=== PATIENT | female | born 1980 ===

== ENCOUNTER 2017-05-31 08:44 | Emergency (ER) | payer OTHER ==
--- NOTE | 2017-05-31 10:20 | ED PDOC ---
HPI: Abdomen Time Seen by Provider: 05/31/17 09:07 Chief Complaint (Nursing): Abdominal Pain Chief Complaint (Provider): abdominal pain History Per: Patient History/Exam Limitations: no limitations Onset/Duration Of Symptoms: Days Additional Complaint(s): 36 year old female, currently 11 weeks , presents to the emergency department with a complaint of right-sided pelvic pain associated with vaginal bleeding ongoing intermittently for 2 days. She denied any fever, chills, back pain, blood clots, syncope, chest pain or urinary complaints. Patient reported that a normal ultrasound with negative findings was performed 2 weeks ago. PMD: none provided Past Medical History Reviewed: Historical Data, Nursing Documentation, Vital Signs Vital Signs: Last Vital Signs Temp 98.4 F 05/31/17 13:41 Pulse 79 05/31/17 13:41 Resp 19 05/31/17 13:41 BP 107/71 05/31/17 13:41 Pulse Ox 99 05/31/17 13:41 - Medical History PMH: No Chronic Diseases - Surgical History Surgical History: Denies: No Surg Hx Other surgeries: rhinoplasty; breast augmentation - Family History Family History: States: Unknown Family Hx - Social History Current smoker - smoking cessation education provided: No Ex-Smoker (has not smoked in the last 12 months): No Alcohol: None Drugs: Denies - Allergies Allergies/Adverse Reactions: Allergies Allergy/AdvReac Type Severity Reaction Status Date / Time No Known Allergies Allergy Verified 05/31/17 08:52 Review of Systems ROS Statement: Except As Marked, All Systems Reviewed And Found Negative Constitutional: Negative for: Fever, Chills Cardiovascular: Negative for: Chest Pain Genitourinary Female: Positive for: Vaginal Bleeding (without clots), Pelvic Pain (right sided). Negative for: Dysuria, Incontinence, Hematuria Musculoskeletal: Negative for: Back Pain Neurological: Negative for: Dizziness Physical Exam - Reviewed Nursing Documentation Reviewed: Yes Vital Signs Reviewed: Yes - Physical Exam Appears: Positive for: Well, Non-toxic, No Acute Distress Head Exam: Positive for: ATRAUMATIC, NORMAL INSPECTION, NORMOCEPHALIC Skin: Positive for: Normal Color Eye Exam: Positive for: Normal appearance ENT: Positive for: Normal ENT Inspection Neck: Positive for: Normal Cardiovascular/Chest: Positive for: Regular Rate, Rhythm, Chest Non Tender Respiratory: Positive for: Normal Breath Sounds. Negative for: Decreased Breath Sounds, Wheezing, Respiratory Distress Gastrointestinal/Abdominal: Positive for: Soft, Tenderness (suprapubic). Negative for: Distended Back: Positive for: Normal Inspection. Negative for: L CVA Tenderness, R CVA Tenderness Extremity: Positive for: Normal ROM (upper/lower) Neurologic/Psych: Positive for: Alert (x3), Oriented - Laboratory Results Result Diagrams: 05/31/17 10:15 05/31/17 10:15 - ECG O2 Sat by Pulse Oximetry: 98 (RA) Pulse Ox Interpretation: Normal - Progress Re-evaluation Time: 12:25 Condition: Re-examined, Improved Medical Decision Making Medical Decision Making: Initial Impression: Vaginal bleeding in , first trimester Differential Diagnosis: Threatened miscarriage; demise; Ovarian torsion Initial Plan: * Type and screen * BMP * Urine * Urine dipstick * CBC * US OB Time: 1218 --US OB FINDINGS: Cardiac activity: Present Rate: 165 BPM Measurements: [place] rump length: 4.05 cm Gestational age based on CRL 11 weeks Gestational age 11 weeks 3 days based on gestational sac measurement 5.49 cm Gestational age derived from LMP: 11 weeks 2 days LIBIA based on LMP: 12/20/2017 LIBIA based on biometry: 12/18/2017 Gestational concordance documented Yolk sac identified Uterus: Unremarkable. Cervix: No Cervical abnormalities: Negative examination for cervical dilatation or effacement. Closed cervix measuring 4.99 cm Subchorionic hemorrhage: None UTERUS: 7.1 x 9.4 x 14.4 cm. Anterior fibroid to the right of the midline 3.6 x 2.5 x 2.7 cm. Anterior fibroid to midpole uterine segment midline 1.2 x 1.4 x 2.1 cm ADNEXA: Right: 2.1 x 3.1 x 2.8 cm. Simple cyst 1.5 x 1.3 cm Normal Doppler arterial waveform documented. Left: 1.5 x 1.9 x 2.1 cm. Normal Doppler arterial waveform documented Fluid in the cul-de-sac: None IMPRESSION: Eleven weeks 2 days intrauterine gestation. Gestational concordance documented. Two small uterine fibroids. Scribe Attestation: Documented by Ana Alston, acting as a scribe for Hitesh Stubbs MD. Provider Scribe Attestation: All medical record entries made by the Scribe were at my direction and personally dictated by me. I have reviewed the chart and agree that the record accurately reflects my personal performance of the history, physical exam, medical decision making, and the department course for this patient. I have also personally directed, reviewed, and agree with the discharge instructions and disposition. Disposition - Clinical Impression Clinical Impression: Abdominal pain during , Vaginal abnormality in , Vaginal bleeding - Patient ED Disposition Is Patient to be Admitted: No Doctor Will See Patient In The: Office Counseled Patient/Family Regarding: Studies Performed, Diagnosis, Need For Followup - Disposition Referrals: [facility] [Outside] Disposition: Routine/Home Disposition Time: 12:30 Condition: GOOD Additional Instructions: Take your vitamins. Follow up with your PCP in 2-3 days. Instructions: Threatened Miscarriage, Bleeding With (DC) Print Language: MEXICAN
[2017-05-31 11:07] LABS: HEMOGLOBIN 12.7 g/dL (12.0-16.0); LYMPH % 15.9 % (20.0-40.0); MEAN CORPUSCULAR HEMOGLOBIN 31.2 pg (27.0-31.0); MEAN PLATELET VOLUME 8.9 fl (7.2-11.7); MONO % 5.8 % (0.0-10.0); NEUT % 77.5 % (50.0-75.0); RBC 4.08 Mil/uL (3.80-5.20); RED CELL DISTRIBUTION WIDTH 13.4 % (11.5-14.5)
[2017-05-31 11:08] LABS: BASO % 0.2 % (0.0-2.0); EOS % 0.6 % (0.0-4.0); LYMPH # 1.3 K/uL (1.0-4.3); MONO # 0.5 K/uL (0.0-0.8); NEUT # 6.2 K/uL (1.8-7.0); NRBC % 0.1 % (0.0-0.0)
[2017-05-31 11:18] LABS: BLOOD UREA NITROGEN 12 mg/dl (7-17); CALCIUM 9.8 mg/dL (8.4-10.2); GFR AFRICAN-AMERICAN > 60; GFR NON-AFRICAN AMERICAN > 60
--- NOTE | 2017-05-31 12:19 | US ---
PROCEDURE: First trimester ultrasound HISTORY: Pelvic pain, vaginal bleeding. COMPARISON: None available. TECHNIQUE: Standard protocol for this study/examination. FINDINGS: LMP: 03/15/2017 Prior examinations from the current : None TECHNIQUE: Real-time 2D imaging, duplex and color Doppler. FINDINGS: Cardiac activity: Present Rate: 165 BPM Measurements: [place] rump length: 4.05 cm Gestational age based on CRL 11 weeks Gestational age 11 weeks 3 days based on gestational sac measurement 5.49 cm Gestational age derived from LMP: 11 weeks 2 days LIBIA based on LMP: 12/20/2017 LIBIA based on biometry: 12/18/2017 Gestational concordance documented Yolk sac identified Uterus: Unremarkable. Cervix: No Cervical abnormalities: Negative examination for cervical dilatation or effacement. Closed cervix measuring 4.99 cm Subchorionic hemorrhage: None UTERUS: 7.1 x 9.4 x 14.4 cm. Anterior fibroid to the right of the midline 3.6 x 2.5 x 2.7 cm. Anterior fibroid to midpole uterine segment midline 1.2 x 1.4 x 2.1 cm ADNEXA: Right: 2.1 x 3.1 x 2.8 cm. Simple cyst 1.5 x 1.3 cm Normal Doppler arterial waveform documented. Left: 1.5 x 1.9 x 2.1 cm. Normal Doppler arterial waveform documented Fluid in the cul-de-sac: None IMPRESSION: Eleven weeks 2 days intrauterine gestation. Gestational concordance documented. Two small uterine fibroids.
[2017-05-31 13:43] VITALS: BP 107/71; PULSE 79; RESP 19; TEMP 98.4
[2017-06-02 14:53] VITALS: O2SAT 98
== END 2017-05-31 14:01 | disposition home or self-care (01) ==
LOC: H.ER 08:44
DX: O46.90 Antepartum hemorrhage, unspecified, unspecified trimester (principal); D25.9 Leiomyoma of uterus, unspecified

== ENCOUNTER 2017-12-15 23:25 | Inpatient (IN) | payer OTHER ==
[2017-12-16 00:11] VITALS: BMI 29.2
[2017-12-16] MEDS ORDERED: Lactated Ringer's 1,000 ML IV SCH ×4 (00:45→18:15)
[2017-12-16 01:46] LABS: HEMOGLOBIN 11.4 g/dL (12.0-16.0); MEAN CELL VOLUME 85.7 fl (81.0-99.0); MEAN CORPUSCULAR HEMOGLOBIN 28.3 pg (27.0-31.0); RBC 4.03 Mil/uL (3.80-5.20); RED CELL DISTRIBUTION WIDTH 13.9 % (11.5-14.5)
[2017-12-16] MEDS ORDERED: Oxytocin 30 UNIT 30 UNITS/500 ML BAG IV ONE ×2 (07:57→14:25)
[2017-12-16] MEDS ORDERED: OXYTOCIN/0.9 % NS 20 UNIT/1,000 ML BAG IV SCH (08:00)
[2017-12-16 08:50] LABS: BASO # 0.1 K/uL (0.0-0.2); EOS # 0.1 K/uL (0.0-0.7); EOS % 0.6 % (0.0-4.0); HEMOGLOBIN 11.5 g/dL (12.0-16.0); LYMPH # 1.2 K/uL (1.0-4.3); LYMPH % 12.4 % (20.0-40.0); MEAN CELL VOLUME 85.4 fl (81.0-99.0); MEAN CORPUSCULAR HEMOGLOBIN 28.6 pg (27.0-31.0); MEAN CORPUSCULAR HGB CONC 33.5 g/dL (33.0-37.0); MEAN PLATELET VOLUME 8.7 fl (7.2-11.7); MONO # 0.5 K/uL (0.0-0.8); MONO % 5.5 % (0.0-10.0); NEUT # 7.6 K/uL (1.8-7.0); NEUT % 80.5 % (50.0-75.0); NRBC % 0.1 % (0.0-0.0); RBC 4.01 Mil/uL (3.80-5.20); WHITE BLOOD COUNT 9.5 K/uL (4.8-10.8)
--- NOTE | 2017-12-16 14:24 | OBPN ---
Datetime: 12/16/2017 14:18 IP Progress Impression Other: category 1 heart tracing IP Procedures: Sterile Vag Exam IP Progress Plan: Augmentation Contraction Comments Provider: Occasional FHR - Baseline A Provider: 120s-130s IP Progress Note Comment: Patient without complaints at this time. Discussed plan with patient and all patient questions answered. Plan to start Pitocin augmentation. Category 1 heart tracing. Vital Signs Provider: Reviewed; Within Normal Limits NICHD Accel Fetus A IP Provider: [id number] FHR Category Provider Fetus A: Category I NICHD Variability Prov Fetus A: Moderate 6-25bpm Dilatation, Provider: 3 Effacement, Provider: 50 Station, Provider: -2 NICHD Decel Fetus A IP Provider: None Datetime: 12/16/2017 00:45 IP Progress Impression: Reassuring heart rate
[2017-12-16] MEDS ORDERED: Fentanyl/Bupivacaine HCl 250 ML EPI ONE (16:43)
[2017-12-16] MEDS ORDERED: Lidocaine 1% Inj (20ml) ONE (22:41)
--- NOTE | 2017-12-17 00:38 | OBPN ---
Datetime: 12/17/2017 00:35 IP Progress Impression Other: Category I FHT IP Procedures: Sterile Vag Exam IP Progress Plan: Continue present management; Augmentation FHR - Baseline A Provider: 130s-140s IP Progress Note Comment: Pt beginning to push. FHT category I. Discussed plan with patient and al l patient questions answered. Vital Signs Provider: Reviewed; Within Normal Limits NICHD Accel Fetus A IP Provider: [id number] FHR Category Provider Fetus A: Category I NICHD Variability Prov Fetus A: Moderate 6-25bpm Dilatation, Provider: 10 Effacement, Provider: 100 Station, Provider: 2 NICHD Decel Fetus A IP Provider: None Datetime: 12/16/2017 19:18 IP Progress Impression: Normal progression of labor
[2017-12-17] MEDS ORDERED: Benzocaine/Menthol SPRAY TOP PRN ×2 (03:49→05:36)
[2017-12-17] MEDS ORDERED: Fentanyl/Bupivacaine HCl 250 ML EPI ONE (05:36)
[2017-12-17] MEDS ORDERED: Lactated Ringer's 1,000 ML IV SCH ×4 (05:36)
[2017-12-17] MEDS ORDERED: OXYTOCIN/0.9 % NS 20 UNIT/1,000 ML BAG IV SCH (05:36)
[2017-12-17 16:56] LABS: HEMOGLOBIN 10.2 g/dL (12.0-16.0); MEAN CELL VOLUME 87.2 fl (81.0-99.0); MEAN CORPUSCULAR HEMOGLOBIN 28.4 pg (27.0-31.0); MEAN CORPUSCULAR HGB CONC 32.5 g/dL (33.0-37.0); RBC 3.58 Mil/uL (3.80-5.20); RED CELL DISTRIBUTION WIDTH 14.4 % (11.5-14.5); WHITE BLOOD COUNT 13.3 K/uL (4.8-10.8)
--- NOTE | 2017-12-18 19:17 | OBPPN ---
Datetime: 12/18/2017 11:30 PP Pain Prov: Within normal limits PP Nausea Prov: Denies PP Flatus Prov: Yes PP Breasts Prov: Normal PP Heart Prov: Normal PP Lungs Prov: Normal PP Abdomen/Uterus Prov: Normal PP Lochia Prov: Normal PP Vulva/Perineum Prov: Normal PP CVA Tenderness Prov: Normal PP Extremities Prov: Normal PP Comments Phys Exam Prov: ABD: Soft, NT, BS present UT- Firm PP Impression Prov: Normal progression PP Plan Prov: Continue present management PP Progress Note Prov: S/P , Clinically Stable Clinically Stable. Plan: Continue care. Vital Signs Provider PP: Reviewed
--- NOTE | 2017-12-19 10:28 | OBPPN ---
Datetime: 12/19/2017 10:24 PP Pain Prov: Within normal limits PP Nausea Prov: Denies PP Flatus Prov: Yes PP Breasts Prov: Normal PP Heart Prov: Normal PP Lungs Prov: Normal PP Abdomen/Uterus Prov: Normal PP Lochia Prov: Normal PP Vulva/Perineum Prov: Normal PP CVA Tenderness Prov: Normal PP Extremities Prov: Normal PP Progress Prov: Normal PP Comments Phys Exam Prov: ABD: Soft, NT, BS- present UT- Firm PP Impression Prov: Normal progression PP Plan Prov: Discharge PP Progress Note Prov: S/P , PPD#2 Clinically Stable Plan: D/C Home. Vital Signs Provider PP: Reviewed
--- NOTE | 2017-12-19 10:30 | OBDCSUM ---
Datetime: 12/19/2017 10:26 Discharged to, Provider: Home Follow up at, Provider: OB Doctor Disch Instr Activity: Normal activity Disch Instr Diet: Regular Discharge Instructions, Provider: Routine instructions given Discharge Diagnosis, Provider: Term Delivered Discharge Time: 12/19/2017 10:26 Follow up in weeks, Provider: 4-6 weeks Disch Referrals: None Contraception discussed, Prov: Yes Discharge Comment, Provider: s/p Uncomplicated , Clinically Stable Discharge Diagnosis Prov Other: s/p Uncomplicated , Clinically Stable
[2017-12-19 23:39] VITALS: BP 127/75; PULSE 109; RESP 18; TEMP 97.9; O2SAT 98
== END 2017-12-19 13:30 | disposition home or self-care (01) | DRG 807 ==
LOC: H.EROB2 23:25 → H.L&D 12-16 05:48 → OBSVTOIN 12-16 07:54 → H.OB/GYN 12-17 08:14
PROVIDERS: ADMIT Obstetrics & Gynecology Gynecology; ATTEND Obstetrics & Gynecology Gynecology
PROC: 4A1HXCZ Monitoring of Products of Conception, Cardiac Rate, External Approach (ICD-10-PCS; 2017-12-16)
PROC: 10E0XZZ Delivery of Products of Conception, External Approach (ICD-10-PCS; principal; 2017-12-17)
PROC: 0KQM0ZZ Repair Perineum Muscle, Open Approach (ICD-10-PCS; 2017-12-17)
DX: O70.1 Second degree perineal laceration during delivery (principal); Z37.0 Single live birth; Z3A.40 40 weeks gestation of pregnancy